=== PATIENT | male | born 1990 | race Caucasian/White ===

== ENCOUNTER 2020-11-01 01:14 | Emergency (ER) | payer OTHER ==
[2020-11-01] MEDS ORDERED: methylPREDNISolone Sod Succ/PF 125 MG/2 ML VIAL ONE (01:38)
== END 2020-11-01 02:00 | disposition home or self-care (01) ==
LOC: NAV ERS 01:14
DX: L50.9 Urticaria, unspecified (principal)
CPT/HCPCS: 96372; 99282; J2930